=== PATIENT | male | born 1970 | race Caucasian/White ===

== ENCOUNTER → 2021-07-28 | Outpatient (CLI) | payer BC ==
[2021-07-28 11:07] LABS: ALT 32 U/L (8-44); AST 21 U/L (13-35); African American GFR (CKD) 80.7 (60.0-200.0); Albumin 4.2 g/dL (3.8-4.9); Albumin/Globulin Ratio 2.17 (1.60-3.17); Alkaline Phosphatase 90 U/L (41-126); Blood Urea Nitrogen 10.3 mg/dL (9.0-27.0); Calcium 8.6 mg/dL (8.7-10.3); Chloride 103 mmol/L (96-109); Chol/HDL Ratio 5.68 Ratio; Globulin 1.9 g/dL (1.6-3.3); Glucose 118 mg/dL (70-110); LDL Cholesterol,Calculated 139.5 mg/dL (0.0-131.0); Non-African American GFR(CKD) 69.6 (60.0-200.0); Potassium 4.3 mmol/L (3.5-5.5); Sodium 140 mmol/L (135-145); Total Protein 6.2 g/dL (6.2-8.2)
[2021-07-28 11:35] LABS: Basophils # (A) 0.01 X 10*3/uL (0.00-0.10); Basophils % (A) 0.2 %; Eosinophils # (A) 0.14 X 10*3/uL (0.04-0.35); Eosinophils % (A) 2.9 %; HCT 43.2 % (37.2-46.3); HGB 14.8 g/dL (12.0-15.0); Lymphocytes # (A) 1.03 X 10*3/uL (0.90-5.00); Lymphocytes % (A) 21.1 %; MCH 32.5 pg (27.0-32.0); MCHC 34.3 g/dL (32.0-37.0); MCV 94.9 fL (80.0-97.0); Mean Platelet Volume 10.7 fL (9.5-12.2); Monocytes # (A) 0.41 X 10*3/uL (0.20-1.00); Monocytes % (A) 8.4 %; Neutrophils # (A) 3.26 X 10*3/uL (1.80-7.70); Platelet Count 258 X 10*3/uL (140-440); RBC 4.55 X 10*6/uL (4.10-5.20); RDW 12.9 % (11.5-14.5); WBC 4.87 X 10*3/uL (4.50-10.00)
== END | disposition home or self-care (01) ==
LOC: LABWHC1 07:11 → EDSEX 07:11
PROVIDERS: ATTEND Family Medicine
DX: E78.5 Hyperlipidemia, unspecified (principal); R03.0 Elevated blood-pressure reading, without diagnosis of hypertension; Z12.5 Encounter for screening for malignant neoplasm of prostate
CPT/HCPCS: 36415; 80053; 80061; 84153; 84443; 85025